=== PATIENT | female | born 1975 | race Caucasian/White ===

== ENCOUNTER 2022-07-22 06:20 | Observation (INO) ==
[~2022-07-22 06:20] MED LIST: Buffered Lidocaine 1% SYRIN 1 ml INTRADERM ONE; Lactated Ringers 1000 ml BAG 1,000 ML IV SCH; Naloxone 0.4 mg VIAL 0.4 mg/ml 1 ml VIAL IV PRN; Ondansetron 4 mg VIAL 2 MG/ML 2 ml VIAL IV PRN; fentaNYL 100 mcg/2 ml 50 MCG/ML VIAL IV PRN; oxyCODONE/Acetamin 5/325 mg TAB PO PRN
[2022-07-22] MEDS ORDERED: Ondansetron 4 mg VIAL 2 MG/ML 2 ml VIAL ONE ×2 (06:58→13:57)
[2022-07-22] MEDS ORDERED: Lidocaine 2% PF 5 ML VIAL ONE (06:58)
[2022-07-22] MEDS ORDERED: Dexamethasone IV 4 MG/ML VIAL 1 ml VIAL ONE (06:58)
[2022-07-22] MEDS ORDERED: Scopolamine 1 mg/72hr PATCH ONE (06:58)
[2022-07-22] MEDS ORDERED: Propofol 10 MG/ML 20 ML BTL ONE ×2 (06:58→16:05)
[2022-07-22] MEDS ORDERED: Ondansetron ODT 4 mg TAB 4 MG TAB ONE (06:59)
[2022-07-22] MEDS ORDERED: ceFOXitin 2 GM IVPREMIX 2 GM/50 ML BAG ONE ×2 (06:59→12:16)
[2022-07-22] MEDS ORDERED: Sevoflurane BOTTLE ONE (06:59)
[2022-07-22] MEDS ORDERED: fentaNYL 250 mcg/5 ml 50 MCG/ML 5 ml VIAL (250 MCG) ONE (07:07)
[2022-07-22] MEDS ORDERED: Midazolam 2 mg/2 ml VIAL 1 mg/ml 2 ml VIAL (2 mg) ONE (07:07)
[2022-07-22] MEDS ORDERED: Rocuronium 50 mg VIAL 10 mg/ml 5 ml VIAL (50 mg) ONE ×3 (07:08→10:45)
[2022-07-22 07:18] LABS: Rapid COVID-19 Molecular Undetected (Undetected)
[2022-07-22] MEDS ORDERED: Bupivacaine 0.5% SDV PF 30ML VIAL ONE (08:14)
[2022-07-22] MEDS ORDERED: Scopolamine 1 mg/72hr PATCH TRANSDERM ONE (09:00)
[2022-07-22] MEDS ORDERED: Fluorescein 10% INJ 100 MG/ML AMP ONE (12:53)
[2022-07-22] MEDS ORDERED: HYDROmorphone 0.5 MG/0.5 ML SYRINGE ONE ×2 (13:08)
[2022-07-22] MEDS ORDERED: Ondansetron 4 mg VIAL 2 MG/ML 2 ml VIAL IV PRN (13:36)
[2022-07-22] MEDS ORDERED: Lactated Ringers 1000 ml BAG 1,000 ML IV SCH (14:00)
[2022-07-23 05:50] LABS: ABS Basophils 0.1 10^3/uL (0.0-0.1); ABS Lymphocytes 2.3 10^3/uL (1.0-4.8); ABS Monocytes 0.9 10^3/uL (0.0-0.9); ABS Neutrophils 8.8 10^3/uL (1.5-7.6); ABS Nucleated RBC 0.01 10^3/ul; Eosinophil % 0.3 %; Hematocrit 35.7 % (35-45); Hemoglobin 12.2 g/dL (11.5-14.3); Mean Corpuscular Hemoglobin 31.2 pg (27-33); Mean Corpuscular Hgb Conc 34.3 g/dL (31-36); Mean Platelet Volume 8.6 fL (7.5-11.2); Platelet Count 256 10^3/uL (150-450); Red Blood Count 3.92 10^6/uL (3.63-4.92); Red Cell Distribution Width 13.5 % (12-17); White Blood Count 12.2 10^3/uL (3.8-11.8)
[2022-07-23 10:06] VITALS: BP 122/75
[2022-07-23] MEDS ORDERED: Simethicone SUSP ORALSYR 66.66 MG/ML PO PRN (10:13)
== END 2022-07-23 12:05 | disposition home or self-care (01) ==
LOC: OR 06:20 → SSU 06:20
PROVIDERS: ADMIT Obstetrics & Gynecology; ATTEND Obstetrics & Gynecology